=== PATIENT | female | born 1940 | race Caucasian/White ===

== ENCOUNTER → 2021-10-10 | Day surgery (SDC) | payer MEDICARE, OTHER ==
[~2021-10-10] VITALS: Ht 165.1 cm; Wt 78.7 kg
[~2021-10-10] MED LIST: ACETAMINOPHEN500 M1 PO; ASPIRIN EC81 MG PO; AUGMENTIN 500-1 EACH PO; AUGMENTIN 875-1 EACH PO; BACTRIM DS TAB1 EACH PO; CALCIUM600 MG PO; COLACE100 MG PO; CRESTOR5 MG PO; DESYREL50 MG PO; FLEXERIL5 MG PO; FLONASE ALLER15.8 ML; LEVO-T112 MCG PO; MONTELUKAST SOD10 MG PO; MOTRIN600 MG PO; NAPROXEN250 MG PO; NORVASC5 MG PO; ONDANSETRON HCL4 MG PO; ONDANSETRON ODT4 MG PO; OXY-IR 5MG5 MG PO; POTASSIUM20 MEQ/11 PO; PRILOSEC20 MG PO; PROLIA60 MG/1 ML IM; PROZAC20 MG PO; SACCHAROMYCES250 MG PO; SYNTHROID25 MCG PO; TOPROL XL 25MG25 MG PO; TRIAMTERENE-HC1 EACH PO; VANCOCIN HCL125 MG PO; VANCOMYCIN500 MG PO; VAZALORE81 MG PO
[2021-10-10 12:35] LABS: CREATININE 0.97 mg/dL (0.51-0.95); POTASSIUM 4.3 mmol/L (3.5-5.1)
== END | disposition home or self-care (01) ==
LOC: FAS 09:58
PROVIDERS: Anesthesiology
DX: K81.1 Chronic cholecystitis (principal); K81.0 Acute cholecystitis; K82.8 Other specified diseases of gallbladder; K66.0 Peritoneal adhesions (postprocedural) (postinfection); I25.10 Atherosclerotic heart disease of native coronary artery without angina pectoris; Z79.82 Long term (current) use of aspirin; Z79.899 Other long term (current) drug therapy; Z88.1 Allergy status to other antibiotic agents; Z88.5 Allergy status to narcotic agent; Z91.013 Allergy to seafood; Z80.0 Family history of malignant neoplasm of digestive organs
CPT/HCPCS: 36415; 80048; 93005; J0690; J1100; J1170; J1644; J1885; J2250; J2405; J2704; J3010; J7120